=== PATIENT | male | born 1975 | race Caucasian/White ===

== ENCOUNTER 2018-11-30 10:58 | Inpatient (IN) ==
[2018-11-30] MEDS ORDERED: Aspirin 81 MG TAB.CHEW PO ONE (11:26)
[2018-11-30] MEDS ORDERED: Nitroglycerin 1 INCH/GM PACKET TP ONE ×2 (11:26→11:56)
[2018-11-30] MEDS ORDERED: 0.9 % Sodium Chloride 500 ML IVC ONE (11:26)
[2018-11-30 11:40] LABS: Basophils % 0.4 %; Eosinophils # 0.2 K/mcL (0.0-0.6); Eosinophils % 1.9 %; Hematocrit 45.2 % (37.5-50.1); Hemoglobin 15.4 g/dL (12.9-16.9); Immature Granulocytes % 0.4 % (0-4); Lymphocytes # 1.2 K/mcL (0.6-4.6); Lymphocytes % 14.3 %; Mean Corpuscular HGB Conc 34.1 g/dL (31.6-35.5); Mean Corpuscular Hemoglobin 31.4 pg (28.0-33.3); Mean Corpuscular Volume 92.2 fL (83.0-100.0); Mean Platelet Volume 10.4 fL (9.4-12.4); Monocytes # 0.7 K/mcL (0.0-1.3); Monocytes % 8.7 %; Neutrophils # 6.2 K/mcL (1.6-8.9); Platelet Count 152 K/mcL (140-400); Red Cell Distribution Width 13.2 % (11.5-14.5); Segmented Neutrophils % 74.3 %; White Blood Count 8.3 K/mcL (4.3-11.1)
[2018-11-30 11:47] LABS: Prothrombin Time 11.1 Seconds (9.4-12.1)
[2018-11-30 11:50] LABS: Activated Partial Thrombo Time 34.4 Seconds (26.0-36.0)
[2018-11-30] MEDS ORDERED: Ondansetron ODT 4 MG TAB.RAPDIS SL ONE (11:54)
[2018-11-30] MEDS ORDERED: 0.9 % Sodium Chloride 1,000 ML IVC ONE (11:54)
[2018-11-30 12:02] LABS: Alanine Aminotransferase 51 Units/L (7-52); Albumin 4.3 g/dL (3.5-5.7); Albumin/Globulin Ratio 1.6 (1.1-2.2); Alkaline Phosphatase 56 Units/L (34-104); Aspartate Amino Transferase 30 Units/L (13-39); BUN/Creatinine Ratio 14 (6-26); Bilirubin,Direct 0.1 mg/dL (0.0-0.2); Bilirubin,Indirect 0.4 mg/dL (0.0-1.2); Bilirubin,Total 0.5 mg/dL (0.3-1.0); Blood Urea Nitrogen 11 mg/dL (6-20); Calcium 9.2 mg/dL (8.6-10.3); Carbon Dioxide 23 mEq/L (23-29); Chloride 104 mEq/L (98-107); Globulin 2.7 g/dL (2.4-3.5); Glucose 107 mg/dL (70-105); Lipase 17 Units/L (11-82); Osmolality,Calculated 284 (280-300); Potassium 3.6 mEq/L (3.5-5.1); Sodium 137 mEq/L (136-145); Troponin I < 0.03 ng/mL (< 0.04); eGFR For African Americans > 60 (> 60); eGFR For Non-African Americans > 60 (> 60)
[2018-11-30] MEDS: Aspirin 81 MG TAB.CHEW PO SCH (12:58)
[2018-11-30] MEDS ORDERED: *HR* HYDROmorphone (PF) 1 MG/ML SYRINGE IVP ONE (14:48)
[2018-11-30] MEDS ORDERED: Isovue-370 500 ML BOTTLE IVP ONE (14:48)
--- NOTE | 2018-11-30 17:43 | Electrocardiograph Report ---
[facility]onet Test Date: 2018-11-30 Pat Name: Noble Lozano Department: EXAM2 Room: Gender: M Platinum Smith: : 1975 Requested By: [id number] Order Number: [id number] Reading MD: Marcelo Carmen Measurements Intervals [place] Rate: 87 P: 41 ID: [id number] QRS: 35 QRSD: 82 T: 54 QT: 349 QTc: 420 Interpretive Statements Sinus rhythm Baseline wander in lead(s) V1 Electronically Signed On 11-30-2018 17:41:25 EDT by Marcelo Carmen
--- NOTE | 2018-11-30 17:59 | Emergency Department Note ---
Disposition Clinical Impression: Chest pain Qualifiers: Chest pain type: unspecified Qualified Code(s): R07.9 - Chest pain, unspecified Disposition: Admitted As Inpatient Condition: Good Referrals: NONE,PCP [Primary Care Provider] - Time of Disposition: 18:00 General Adult HPI - General Chief complaint: ED Chest Pain Stated complaint: Chest Pain Time Seen by Provider: 11/30/18 11:26 Source: patient Limitations: no limitations - History of Present Illness HPI Narrative: HPI Chief Complaint chest pain Patient Stated Complaint Patient is a 43-year-old white male comes in with chest pain started earlier today approximately 8 or 9 AM patient is a history of any cardiac disease states has known high blood pressure denies any shortness of breath denies any recent traumatic events whatsoever and does have some mild bilateral chest wall tenderness to palpation otherwise all other systems reviewed are negative Allergy List : Reviewed-and agree with nurses notes Home Medication List : Reviewed-and agree with nurses notes Medical and Surgical History Active Problem List: Reviewed-and agree with nurses notes Family History Reviewed- see -nurses notes Vital Signs and Body Measurements Reviewed- see -nurses notes ROS At Least 10 Organ Systems Reviewed and Negative Except as Indicated in HPI Physical Examination: All findings normal unless otherwise noted Constitutional Alert & orientated x 3, No Acute Distress Well Nourished Head and Face :Normocephalic and Atraumatic Eye Extraocular Movement Intact Pupils Equally Round Reactive to light Ear Nose Throat Mucous Membranes Moist No Injury or Deformity Oropharynx Clear Cardiovascular Capillary Refill Less than 2 Seconds No Peripheral Edema Normal S1, S2 Pulses Normal Regular Rate and Rhythm Respiratory Clear to Auscultation Bilaterally Normal Rate and Effort no Respiratory Distress or Stridor Gastrointestinal Abdomen Soft Bowel Sounds Present Not Tender Distended Generalized Tenderness. No Guarding Rebound Rigid Genitourinary No Lesion Normal External Genitalia Musculoskeletal Distal Pulses Normal No Injury or Deformity No Calf Tendernes, no Paraspinous Tenderness or spinal ttp Cervical Lumbar Thoracic set positive bilateral chest wall tenderness to palpation Neurologic 5/5 Strength throughout No Focal Deficits Sensation Intact or Slurred Speech Skin Dry No Lesion No Rash Normal Color Warm no Cyanosis Diaphoretic Lymph No Lymphadenopathy or Lymphadenopathy Lymphedema Psychiatric Appropriate Affect Cooperative not Depressed Manic or having Suicidal Thoughts Laboratory Results-reviewed see results Data Reviewed EKG interpretation normal sinus rhythm rate 70 no STEMI Medical Decision Making and Diagnosis Medical Decision Making And evaluated labs and imaging reviewed and myself revealed patient improved with treatment and chest pain came back and stated both upper quadrant pain. CT scan performed was negative for acute cholecystitis patient now chest pain-free again. Her chest pain patient be admitted for observation for evaluation and ma indiaement patient with pain meds and antihypertensives due to elevated blood pressure dramatically improved. Family painful for care and agree with assessment and plan Differential Diagnosis Considered Final Diagnostic Impression #1 chest pain #2 hypertension 3. Abdominal pain #4 chest wall pain Disposition Admit Observation Pain Scale: 2 - Related Data Home Medications Medication Instructions Recorded Confirmed Esomeprazole Magnesium [Heartburn 20 mg PO DAILY 11/30/18 11/30/18 Treatment] Allergies Allergy/AdvReac Type Severity Reaction Status Date / Time Penicillins [PCN] Allergy Hives Verified 11/30/18 11:54 Past Medical History - Past Medical History Medical history: Reports: no medical history Psychiatric history: Reports: no psych history - Social History Smoking Status: Current every day smoker Alcohol use: Reports: none Drug use: Reports: none Physical Exam - General Limitations: no limitations Course Vital Signs Temperature 98.7 F 11/30/18 11:05 Pulse Rate 90 11/30/18 11:05 Respiratory Rate 16 11/30/18 11:05 Blood Pressure 198/121 11/30/18 11:05 O2 Sat by Pulse Oximetry 98 11/30/18 11:05 Temperature 98.7 F 11/30/18 11:05 Pulse Rate 90 11/30/18 13:10 Respiratory Rate 20 11/30/18 13:10 Blood Pressure 167/104 11/30/18 13:10 O2 Sat by Pulse Oximetry 98 11/30/18 13:10 Oxygen Delivery Oxygen Delivery Room Air Medical Decision Making - Lab Data Result diagrams: 11/30/18 11:15 11/30/18 11:15 Lab Results 11/30/18 11/30/18 11/30/18 Range/Units 11:15 11:15 11:15 WBC 8.3 (4.3-11.1) K/mcL RBC 4.90 (4.19-5.50) M/mcL Hgb 15.4 (12.9-16.9) g/dL Hct 45.2 (37.5-50.1) % MCV 92.2 (83.0-100.0) fL MCH 31.4 (28.0-33.3) pg MCHC 34.1 (31.6-35.5) g/dL RDW 13.2 (11.5-14.5) % Plt Count 152 (140-400) K/mcL MPV 10.4 (9.4-12.4) fL Immature Gran % 0.4 (0-4) % Seg Neutrophils % 74.3 % Lymphocytes % 14.3 % Monocytes % 8.7 % Eosinophils % 1.9 % Basophils % 0.4 % Neutrophils # 6.2 (1.6-8.9) K/mcL Lymphocytes # 1.2 (0.6-4.6) K/mcL Monocytes # 0.7 (0.0-1.3) K/mcL Eosinophils # 0.2 (0.0-0.6) K/mcL Basophils # 0.0 (0.0-0.2) K/mcL PT 11.1 (9.4-12.1) Seconds INR 1.0 APTT 34.4 (26.0-36.0) Seconds Sodium 137 (136-145) mEq/L Potassium 3.6 (3.5-5.1) mEq/L Chloride 104 (98-107) mEq/L Carbon Dioxide 23 (23-29) mEq/L BUN 11 (6-20) mg/dL Creatinine 0.76 (0.70-1.30) mg/dL Est GFR ( Amer) > 60 (> 60) Est GFR (Non-Af Amer) > 60 (> 60) BUN/Creatinine Ratio 14 (6-26) Glucose 107 H (70-105) mg/dL Calculated Osmolality 284 (280-300) Calcium 9.2 (8.6-10.3) mg/dL Total Bilirubin 0.5 (0.3-1.0) mg/dL Direct Bilirubin 0.1 (0.0-0.2) mg/dL Indirect Bilirubin 0.4 (0.0-1.2) mg/dL AST 30 (13-39) Units/L ALT 51 (7-52) Units/L Alkaline Phosphatase 56 (34-104) Units/L Troponin I < 0.03 (< 0.04) ng/mL Serum Total Protein 7.0 (6.4-8.9) g/dL Albumin 4.3 (3.5-5.7) g/dL Globulin 2.7 (2.4-3.5) g/dL Albumin/Globulin Ratio 1.6 (1.1-2.2) Lipase 17 (11-82) Units/L 11/30/18 11/30/18 Range/Units 14:57 16:37 WBC (4.3-11.1) K/mcL RBC (4.19-5.50) M/mcL Hgb (12.9-16.9) g/dL Hct (37.5-50.1) % MCV (83.0-100.0) fL MCH (28.0-33.3) pg MCHC (31.6-35.5) g/dL RDW (11.5-14.5) % Plt Count (140-400) K/mcL MPV (9.4-12.4) fL Immature Gran % (0-4) % Seg Neutrophils % % Lymphocytes % % Monocytes % % Eosinophils % % Basophils % % Neutrophils # (1.6-8.9) K/mcL Lymphocytes # (0.6-4.6) K/mcL Monocytes # (0.0-1.3) K/mcL Eosinophils # (0.0-0.6) K/mcL Basophils # (0.0-0.2) K/mcL PT (9.4-12.1) Seconds INR APTT (26.0-36.0) Seconds Sodium (136-145) mEq/L Potassium (3.5-5.1) mEq/L Chloride (98-107) mEq/L Carbon Dioxide (23-29) mEq/L BUN (6-20) mg/dL Creatinine (0.70-1.30) mg/dL Est GFR ( Amer) (> 60) Est GFR (Non-Af Amer) (> 60) BUN/Creatinine Ratio (6-26) Glucose (70-105) mg/dL Calculated Osmolality (280-300) Calcium (8.6-10.3) mg/dL Total Bilirubin (0.3-1.0) mg/dL Direct Bilirubin (0.0-0.2) mg/dL Indirect Bilirubin (0.0-1.2) mg/dL AST (13-39) Units/L ALT (7-52) Units/L Alkaline Phosphatase (34-104) Units/L Troponin I < 0.03 < 0.03 (< 0.04) ng/mL Serum Total Protein (6.4-8.9) g/dL Albumin (3.5-5.7) g/dL Globulin (2.4-3.5) g/dL Albumin/Globulin Ratio (1.1-2.2) Lipase (11-82) Units/L
--- NOTE | 2018-11-30 20:06 | Internal Med History&Physical ---
Date of Encounter: 12/01/18 Time of Encounter: 19:59 Internal Medicine - H&P: HPI Chief complaint: Chest pain. Admitted From: Home History of present illness: Mr. Lozano is a 43 year old male with past medical history of acid reflux resented to the ED for chest pain. [id number] encounter occurred about 7:10 p.m. Patient stated that he has not seen a primary care provider for over 20 years. Patient reported unknown past medical history of hyperlipidemia, type 2 diabetes, hypertension. Patient stated that this occurred substernal pressure in character 7/10 in severity and nonradiating constant worsened exertion and improved with nitroglycerin and is now 3/1 in severity association with nausea. Denied association of diaphoresis, shortness of breath, abdominal pain, visual changes or headache.. Patient had previous stress tests are cardiac catheterization previously. Patient does endorse smoking at least one pack per day for over 27 years, admits to daily drinking around 6-8 beers daily last drink being Monday, No drugs usage. 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 Patient's past medical, family, social and surgical history were reviewed personally. Patient's father has had 2 heart attacks at age of 50s. Discussed situation and patient course with sister. Patient also has been complaining of headache generalized occurred after placing nitroglycerin topical on the patient. CODE STATUS discussed with the patient is full code. Past Med Surg Social Fam HX - Past Medical History Medical history: no medical history Psychiatric history: no psych history - Social History Smoking Status: Current every day smoker Alcohol use: none Drug use: none - Family History Father Living Status: Hx Family Cardiac Disorders: Yes ([place], HTN) Mother Hx Family Endocrine Disorder: Yes (DM) Internal Medicine - H&P: Meds Esomeprazole Magnesium [Heartburn Treatment] 20 mg PO DAILY 11/30/18 [History] Allergy/AdvReac Type Severity Reaction Status Date / Time Penicillins [PCN] Allergy Hives Verified 11/30/18 22:39 All Systems PM: A 10-system review of systems was performed and is negative for pertinent findings except as documented above in the HPI. Review of systems: General: No unintentional weightloss, No fever, No night sweats. Head: + headahce, No injury. Ears: No discharge, No earache Eyes: No drainage, No eye pain Mouth and Throat: No new ulcers, No pain Nose and Sinus: No new congestion, No pain, Respiratory: No cough, No sputum production, No dyspnea Cardiovascular: + chest pain, No palpitations. Gastrointestinal:+ nausea, No vomiting. No abdominal pain Genital Tract: No discharge, No pain Urinary Tract: No dysuria, No discharge. MSK: No new/worsening joint pain or new/worsening muscle ache. Endocrine: No cold intolerance, No polyuria Psychological: No suicidal, No homocidal ideation. - Constitutional Vitals: Temp Pulse Resp BP Pulse Ox 98.7 F 90 18 169/106 98 11/30/18 11:05 11/30/18 13:10 11/30/18 19:38 11/30/18 19:38 11/30/18 13:10 Exam: General Appearance: Appearing as age, well-nourished in moderate acute distress. Head: Atraumatic normocephalic Skin: Normal texture, normal turgor, warm, dry. diaphoretic. Eyes: Conjunctivae not pale with no erythema, drainage, or ulcers. Anicteric. Neck: No Lymphadenopathy in the anterior/posterior cervical chain. No thyromegaly, masses or ulcers. Trachea midline. Heart: RRR, grade 2 systolic murmurs. Capillary refill 3 seconds Lungs: No accessory muscle usage, lungs clear to auscultation bilaterally, no wheezes or crackles. Extremities: No pitting edema, clubbing, cyanosis, or ulcers. Abdomen: morbid obese, Non-distended, normoactive bowel sounds. non-tender to palpation, no hepatomegally. No guarding. Neuro: AOx3 with no new sensory loss or focal deficits. MSK: Strength 5/5 Upper extremity equal bilaterally. Strength 5/5 Lower extremity equal bilaterally Internal Med - H&P Results - Labs CBC & Chem 7: 11/30/18 11:15 11/30/18 11:15 Labs: Short CBC 11/30/18 Range/Units 11:15 WBC 8.3 (4.3-11.1) K/mcL Hgb 15.4 (12.9-16.9) g/dL Hct 45.2 (37.5-50.1) % Plt Count 152 (140-400) K/mcL Neutrophils # 6.2 (1.6-8.9) K/mcL BMP 11/30/18 11:15 Sodium 137 Potassium 3.6 Chloride 104 Carbon Dioxide 23 BUN 11 Creatinine 0.76 Glucose 107 H Calcium 9.2 Cardiac Enzymes 11/30/18 11/30/18 11/30/18 Range/Units 11:15 14:57 16:37 Troponin I < 0.03 < 0.03 < 0.03 (< 0.04) ng/mL Liver Function 11/30/18 Range/Units 11:15 Total Bilirubin 0.5 (0.3-1.0) mg/dL Direct Bilirubin 0.1 (0.0-0.2) mg/dL AST 30 (13-39) Units/L ALT 51 (7-52) Units/L Alkaline Phosphatase 56 (34-104) Units/L Albumin 4.3 (3.5-5.7) g/dL - Impressions ITS Impressions Chest X-Ray 11/30/18 11:26 IMPRESSION: No evidence for acute cardiopulmonary process. D/ / Marcos Rodriguez MD / Marcos Rodriguez MD Interpreting Provider: Marcos Rodriguez MD Abdomen CT 11/30/18 14:48 IMPRESSION: Cholelithiasis. No acute cholecystitis. Scattered regions of hazy increased attenuation within the mesentery centrally. Retroperitoneal and mesenteric lymph nodes are slightly increased in number however normal in caliber. Findings may represent a mild mesenteritis. Recommend follow-up CT in 3-6 months to ensure no progression or adenopathy. D/ / Sharona Marcus MD / Sharona Marcus MD Interpreting Provider: Sharona Marcus MD Chest CT 11/30/18 14:48 IMPRESSION: No acute findings in the chest. D/ / Rylan Donahue MD / Rylan Donahue MD Interpreting Provider: Rylan Donahue MD - Summary of Assessment and Plan Summary of Assessment and Plan: 1.Typical Chest pain: 3/3(Substernal/Alleviated with rest/Worsened with exertion) ALDA Score: 0 pending lab results. My interpretation of EKG normal sinus rhythm with LAE and incomplete LBBB. No STT ischemic changes, CXR no acute findings. BB, Nitro, high intensity statin, Oxygen, and ASA. Troponin, EKG q6hour, Cardiac monitoring. Lipid panel, A1c, electrolytes pending Nuclear Stress test and echocardiogram. 2.Cigarette smoker: Nicotine patch ordered. 3.History of alcohol abuse: [facility] protocol initiated 4.Class I obesity: Nutrition consultation DVT prophylaxis: Heparin Disposition: Likely less than 2 day stay - Time Spent With Patient Total time spent is greater than 37 minutes 50% in coordination of care (as documented) at patient's floor/unit and/or counseling patient: Greater than 35 minutes
[2018-11-30] MEDS ORDERED: Nitroglycerin 0.4 MG TAB.SUBL SL PRN (20:14)
[2018-11-30] MEDS ORDERED: D5% in Water 1,000 ML IVC PRN (20:14)
[2018-11-30] MEDS ORDERED: *HR* LORazepam 2 MG/ML VIAL IVP PRN (20:14)
[2018-11-30] MEDS ORDERED: Dextrose Gel 15 GM/37.5 ML TUBE PO PRN ×2 (20:14)
[2018-11-30] MEDS ORDERED: Morphine Sulfate 2 MG/ML SYRINGE IVP PRN (20:14)
[2018-11-30] MEDS ORDERED: Nicotine 2 MG GUM BC PRN (20:14)
[2018-11-30] MEDS ORDERED: Naloxone 0.4 MG/ML INJ IVP PRN (20:14)
[2018-11-30] MEDS ORDERED: *HR* Dextrose 50 % in Water (Syg) 50 ML SYRINGE IVP PRN (20:14)
[2018-11-30] MEDS ORDERED: 0.9 % Sodium Chloride 1,000 ML IVC SCH (20:15)
[2018-11-30] MEDS: Ondansetron 4 MG/2 ML VIAL IVP PRN (20:54)
[2018-11-30] MEDS: Acetaminophen 325 MG TABLET PO PRN (20:58)
[2018-11-30] MEDS: *HR* Heparin 5,000 UNIT/ML VIAL SQ SCH (20:59)
[2018-11-30 21:07] LABS: Estimated Average Glucose 126 mg/dl
[2018-12-01 02:45] LABS: Basophils % 0.2 %; Eosinophils # 0.1 K/mcL (0.0-0.6); Eosinophils % 0.8 %; Hematocrit 42.1 % (37.5-50.1); Hemoglobin 14.2 g/dL (12.9-16.9); Immature Granulocytes % 0.5 % (0-4); Lymphocytes # 1.2 K/mcL (0.6-4.6); Lymphocytes % 12.4 %; Mean Corpuscular HGB Conc 33.7 g/dL (31.6-35.5); Mean Corpuscular Hemoglobin 31.3 pg (28.0-33.3); Mean Corpuscular Volume 92.9 fL (83.0-100.0); Mean Platelet Volume 10.4 fL (9.4-12.4); Monocytes # 0.9 K/mcL (0.0-1.3); Monocytes % 8.7 %; Neutrophils # 7.7 K/mcL (1.6-8.9); Platelet Count 144 K/mcL (140-400); Red Blood Count 4.53 M/mcL (4.19-5.50); Red Cell Distribution Width 13.3 % (11.5-14.5); Segmented Neutrophils % 77.4 %
[2018-12-01 02:52] LABS: INR 1.1; Prothrombin Time 12.1 Seconds (9.4-12.1)
[2018-12-01 03:03] LABS: Alanine Aminotransferase 39 Units/L (7-52); Albumin 3.7 g/dL (3.5-5.7); Albumin/Globulin Ratio 1.6 (1.1-2.2); Alkaline Phosphatase 48 Units/L (34-104); Aspartate Amino Transferase 19 Units/L (13-39); BUN/Creatinine Ratio 13 (6-26); Bilirubin,Total 0.7 mg/dL (0.3-1.0); Blood Urea Nitrogen 8 mg/dL (6-20); Calcium 8.2 mg/dL (8.6-10.3); Carbon Dioxide 22 mEq/L (23-29); Chloride 103 mEq/L (98-107); Chol/HDL Ratio 4.2 (0-4.9); Cholesterol 178 mg/dL (< 200); Globulin 2.3 g/dL (2.4-3.5); Glucose 108 mg/dL (70-105); HDL Cholesterol 42 mg/dL (40-59); LDL Cholesterol,Calculated 106 mg/dL (0-99); Magnesium 1.6 mg/dL (1.6-2.6); Osmolality,Calculated 279 (280-300); Phosphorous 2.9 mg/dL (2.7-4.5); Potassium 3.5 mEq/L (3.5-5.1); Sodium 135 mEq/L (136-145); Triglycerides 152 mg/dL (< 150); eGFR For African Americans > 60 (> 60); eGFR For Non-African Americans > 60 (> 60)
[2018-12-01] MEDS: *HR* Heparin 5,000 UNIT/ML VIAL SQ SCH ×3 (06:03→21:46)
[2018-12-01] MEDS ORDERED: Regadenoson 0.4 MG/5 ML SYRINGE IVP ONE (07:02)
[2018-12-01] MEDS: Vitamin B Complex/Vit C/Vit E 1 EACH TABLET PO SCH (11:53)
[2018-12-01] MEDS: Thiamine (B-1) 100 MG TABLET PO SCH (11:53)
[2018-12-01] MEDS: Aspirin 81 MG TAB.CHEW PO SCH (11:53)
[2018-12-01] MEDS: Acetaminophen 325 MG TABLET PO PRN ×2 (11:53→19:32)
[2018-12-01] MEDS: Folic Acid 1 MG TABLET PO SCH (11:53)
[2018-12-01] MEDS: Nicotine 21 MG PATCH.TD24 TD SCH (11:54)
--- NOTE | 2018-12-01 14:01 | Internal Med Progress Note ---
Hospitalist Progress Note - Encounter Date of Encounter: 12/01/18 Time of Encounter: 08:10 - Subjective Interval History: No acute events overnight. Patient here for acute substernal chest pain and nausea. This morning he reports that his pain is most severe in the right upper quadrant region of his abdomen. He denies fever and chills. - Exam Vitals: Temp Pulse Resp BP Pulse Ox 36.7 C 90 16 155/92 96 12/01/18 11:04 12/01/18 11:04 12/01/18 11:04 12/01/18 11:04 12/01/18 11:04 Exam: General Appearance: Appearing as age, well-nourished in moderate acute distress. Head: Atraumatic normocephalic Skin: Normal texture, normal turgor, warm, dry. diaphoretic. Eyes: Conjunctivae not pale with no erythema, drainage, or ulcers. Anicteric. Neck: No Lymphadenopathy in the anterior/posterior cervical chain. No thyromegaly, masses or ulcers. Trachea midline. Heart: RRR, grade 2 systolic murmurs. Capillary refill 3 seconds Lungs: No accessory muscle usage, lungs clear to auscultation bilaterally, no wheezes or crackles. Extremities: No pitting edema, clubbing, cyanosis, or ulcers. Abdomen: Significant tenderness in right upper quadrant region. Rosenberg's sign is equivocal since patient has tenderness before and after deep inspiration. Neuro: AOx3 with no new sensory loss or focal deficits. MSK: Strength 5/5 Upper extremity equal bilaterally. Strength 5/5 Lower extremity equal bilaterally - Assessment and Plan (1) Acute cholecystitis Current Visit: Yes Status: Suspected Assessment and Plan: Patient reports significant right upper quadrant pain He also admits nausea but denies vomiting, fever and chills Right upper quadrant ultrasound suspicious for cholecystitis with gallstones present and gallbladder. Gen. surgery consulted Patient to be on a clear liquid diet for now and nothing by mouth after midnight for possible cholecystectomy tomorrow morning (2) Chest pain Current Visit: Yes Status: Acute Assessment and Plan: Presented with restrosternal chest pain initially. Troponin negative x5 EKG normal ECHO: LVEF 60-65%, normal LV chamber and size, Moderate left ventricular diastolic dysfunction, normal RV sturcture, No evidence of PHTN, No valvular dysfunction. Perfusion imaging negative for ischemia or infarct. Will monitor. (3) Alcohol abuse Current Visit: Yes Status: Acute Assessment and Plan: Patient drinks 6 bottles of beer every night. He has been counseled on available options to help quit alcohol CIWA protocol (4) Cigarette nicotine dependence Current Visit: Yes Status: Acute Assessment and Plan: Patient smokes half a pack a day Counseled on available options to help quit smoking. (5) Obesity (BMI 30.0-34.9) Current Visit: Yes Status: Acute Assessment and Plan: Counseled on weight loss options. (6) DVT prophylaxis Current Visit: Yes Status: Acute Assessment and Plan: Subcutaneous heparin - Time Spent with Patient Total time spent is greater than 50% in coordination of care (as documented) at patient's floor/unit and/or counseling patient: Internal Medicine: Result - Labs CBC & Chem 7: 12/01/18 02:13 12/01/18 02:13 Labs: Short CBC 12/01/18 Range/Units 02:13 WBC 10.0 (4.3-11.1) K/mcL Hgb 14.2 (12.9-16.9) g/dL Hct 42.1 (37.5-50.1) % Plt Count 144 (140-400) K/mcL Neutrophils # 7.7 (1.6-8.9) K/mcL BMP 12/01/18 02:13 Sodium 135 L Potassium 3.5 Chloride 103 Carbon Dioxide 22 L BUN 8 Creatinine 0.61 L Glucose 108 H Calcium 8.2 L Cardiac Enzymes 11/30/18 11/30/18 11/30/18 Range/Units 14:57 16:37 20:44 Troponin I < 0.03 < 0.03 < 0.03 (< 0.04) ng/mL 12/01/18 Range/Units 02:13 Troponin I < 0.03 (< 0.04) ng/mL Liver Function 12/01/18 Range/Units 02:13 Total Bilirubin 0.7 (0.3-1.0) mg/dL AST 19 (13-39) Units/L ALT 39 (7-52) Units/L Alkaline Phosphatase 48 (34-104) Units/L Albumin 3.7 (3.5-5.7) g/dL - ABG Interpretation ABG results: PT/INR, D-dimer PT 12.1 Seconds (9.4-12.1) 12/01/18 02:13 - Impressions Impressions Abdomen CT 11/30/18 14:48 IMPRESSION: Cholelithiasis. No acute cholecystitis. Scattered regions of hazy increased attenuation within the mesentery centrally. Retroperitoneal and mesenteric lymph nodes are slightly increased in number however normal in caliber. Findings may represent a mild mesenteritis. Recommend follow-up CT in 3-6 months to ensure no progression or adenopathy. D/ / Sharona Marcus MD / Sharona Marcus MD Interpreting Provider: Sharona Marcus MD Chest CT 11/30/18 14:48 IMPRESSION: No acute findings in the chest. D/ / Rylan Donahue MD / Rylan Donahue MD Interpreting Provider: Rylan Donahue MD Echocardiogram 11/30/18 20:14 Impressions: LVEF 60-65%. Normal LV chamber size, wall thickness and function. Moderate left ventricular diastolic dysfunction. Normal right ventricular structure and function. No evidence of pulmonary hypertension. No significant valvular dysfunction. Left Ventricular Wall Motion: Rest Echo Findings All wall segments showed normal motion. Findings: Study Quality * Technically adequate exam. ECG Findings * Normal sinus rhythm. Left Ventricle * LVEF 60-65%. * Normal LV chamber size, wall thickness and function. * Moderate left ventricular diastolic dysfunction. Right Ventricle * Normal right ventricular structure and function. Left Atrium * Mildly dilated left atrium. Right Atrium * Normal right atrial size. Interatrial Septum * No evidence of PFO by color Doppler. Aortic Valve * Aortic valve not well visualized. * No aortic regurgitation. * No aortic stenosis. Mitral Valve * Normal mitral valve structure and function. * No mitral regurgitation. * No mitral stenosis. Tricuspid Valve * Normal tricuspid valve structure and function. * Trace tricuspid regurgitation. * No evidence of pulmonary hypertension. Pulmonic Valve * Normal pulmonic valve structure and function. * No pulmonic regurgitation. Aorta * Normally sized aortic root. Pericardium * The pericardium appears normal. IVC * Normal IVC dimensions and inspiratory collapse. Pulmonary Artery * Normal visualized portions of the main pulmonary artery. Liver Ultrasound 12/01/18 11:00 IMPRESSION: Findings suspicious for acute cholecystitis. D/ / Hoang Bradley MD / Hoang Bradley MD Interpreting Provider: Hoang Bradley MD Consult Discharge Plan - Plan Referrals: NONE,PCP [Primary Care Provider] - (2) Chest pain Qualifiers: Chest pain type: unspecified Qualified Code(s): R07.9 - Chest pain, unspecified
--- NOTE | 2018-12-01 17:37 | AcuteCare Surgery Consult Note ---
Date of Encounter: 12/01/18 Time of Encounter: 17:25 Assessment and Plan (1) Cholelithiasis with acute on chronic cholecystitis without biliary obstruction Current Visit: Yes Status: Acute Findings are consistent with cholelithiasis with acute on chronic cholecystitis. I have recommended laparoscopic cholecystectomy and discussed the risks and benefits with the patient. He wishes to proceed. Qualifiers: Cholelithiasis location: gallbladder Qualified Code(s): K80.12 - Calculus of gallbladder with acute and chronic cholecystitis without obstruction (2) Acute cholecystitis Current Visit: Yes Status: Suspected Ultrasound findings suggestive of acute cholecystitis. I would add antibiotics at this point. The patient does have penicillin allergy with hives History of Present Illness Consult date: 12/01/18 Reason for consult: abdominal pain History of present illness: The patient initially presented to the emergency department with retrosternal chest pain. He had a full cardiac workup. EKG and troponin levels were all n egative. A follow-up ultrasound right upper quadrant demonstrated thickened gallbladder wall and cholelithiasis with pericholecystic fluid. Findings are suggestive of acute cholecystitis. The patient denies shakes chills or fever. He denies episodes of jaundice. He has had intermittent postprandial nausea. Earlier today he had some pain in the right upper quadrant after drinking liquids. The patient has cholelithiasis with chronic cholecystitis with likely an acute episode of cholecystitis or recalcitrant biliary colic. He has clear indications for laparoscopic cholecystectomy. I discussed the risks and benefits of surgery with him including bleeding, infection, reoperation, open co nversion, and bile duct leak or injury. He wishes to proceed. Past Med Surg Social Fam HX - Past Medical History Medical history: no medical history Psychiatric history: no psych history - Social History Smoking Status: Current every day smoker Alcohol use: none Drug use: none - Family History Father Living Status: Hx Family Cardiac Disorders: Yes ([place], HTN) Mother Hx Family Endocrine Disorder: Yes (DM) Medications and Allergies Esomeprazole Magnesium [Heartburn Treatment] 20 mg PO DAILY 11/30/18 [History] Allergy/AdvReac Type Severity Reaction Status Date / Time Penicillins [PCN] Allergy Hives Verified 11/30/18 22:39 Review of Systems All systems PM: The remainder of the systems were reviewed and are negative General Surgery Exam Initial Vital Signs Temp Pulse Resp BP Pulse Ox 98.7 F 90 16 198/121 98 11/30/18 11:05 11/30/18 11:05 11/30/18 11:05 11/30/18 11:05 11/30/18 11:05 - General physical appearance well developed, well nourished, no distress - Neck no masses, no bruits, trachea midline, no lymphadectomy, no venous distension - Respiratory normal expansion, normal respiratory effort, clear to auscultation - Cardiovascular Cardiovascular exam: Present: RRR, no murmurs/rubs/gallops - Abdomen Abdomen general surgery: Present: bowel sounds present, soft, tender Abdominal Tenderness: Present: RUQ (Mild tenderness with Rosenberg sign to deep palpation. No involuntary guarding or rebound) - Incision Incision: Present: clean and dry, intact - Neurologic Present: CN 2-12 grossly intact, normal coordination, normal sensation - Psychiatric Psychiatric general surgery: Present: appropriate, oriented to person, oriented to place, oriented to time, speech is normal, memory intact Exam Initial Vital Signs Temp Pulse Resp BP Pulse Ox 98.7 F 90 16 198/121 98 11/30/18 11:05 11/30/18 11:05 11/30/18 11:05 11/30/18 11:05 11/30/18 11:05 Results - Labs 12/01/18 02:13 12/01/18 02:13 Abnormal lab results Sodium 135 mEq/L (136-145) L 12/01/18 02:13 Carbon Dioxide 22 mEq/L (23-29) L 12/01/18 02:13 Creatinine 0.61 mg/dL (0.70-1.30) L 12/01/18 02:13 Glucose 108 mg/dL (70-105) H 12/01/18 02:13 Hemoglobin A1c 6.0 % (-5.6) H 11/30/18 20:44 Calculated Osmolality 279 (280-300) L 12/01/18 02:13 Calcium 8.2 mg/dL (8.6-10.3) L 12/01/18 02:13 Serum Total Protein 6.0 g/dL (6.4-8.9) L 12/01/18 02:13 Globulin 2.3 g/dL (2.4-3.5) L 12/01/18 02:13 Triglycerides 152 mg/dL (< 150) H 12/01/18 02:13 LDL Cholesterol, Calc 106 mg/dL (0-99) H 12/01/18 02:13 Diabetes panel 11/30/18 12/01/18 Range/Units 20:44 02:13 Sodium 135 L (136-145) mEq/L Potassium 3.5 (3.5-5.1) mEq/L Chloride 103 (98-107) mEq/L Carbon Dioxide 22 L (23-29) mEq/L BUN 8 (6-20) mg/dL Creatinine 0.61 L (0.70-1.30) mg/dL Glucose 108 H (70-105) mg/dL Hemoglobin A1c 6.0 H ( - 5.6) % Calcium 8.2 L (8.6-10.3) mg/dL AST 19 (13-39) Units/L ALT 39 (7-52) Units/L Alkaline Phosphatase 48 (34-104) Units/L Albumin 3.7 (3.5-5.7) g/dL Triglycerides 152 H (< 150) mg/dL HDL Cholesterol 42 (40-59) mg/dL Calcium panel 12/01/18 Range/Units 02:13 Calcium 8.2 L (8.6-10.3) mg/dL Phosphorus 2.9 (2.7-4.5) mg/dL Albumin 3.7 (3.5-5.7) g/dL Pituitary panel 12/01/18 Range/Units 02:13 Sodium 135 L (136-145) mEq/L Potassium 3.5 (3.5-5.1) mEq/L Chloride 103 (98-107) mEq/L Carbon Dioxide 22 L (23-29) mEq/L BUN 8 (6-20) mg/dL Creatinine 0.61 L (0.70-1.30) mg/dL Glucose 108 H (70-105) mg/dL Calcium 8.2 L (8.6-10.3) mg/dL Adrenal panel 12/01/18 Range/Units 02:13 Sodium 135 L (136-145) mEq/L Potassium 3.5 (3.5-5.1) mEq/L Chloride 103 (98-107) mEq/L Carbon Dioxide 22 L (23-29) mEq/L BUN 8 (6-20) mg/dL Creatinine 0.61 L (0.70-1.30) mg/dL Glucose 108 H (70-105) mg/dL Calcium 8.2 L (8.6-10.3) mg/dL Total Bilirubin 0.7 (0.3-1.0) mg/dL AST 19 (13-39) Units/L ALT 39 (7-52) Units/L Alkaline Phosphatase 48 (34-104) Units/L Albumin 3.7 (3.5-5.7) g/dL All other labs normal. - Imaging US - abdomen: image reviewed (I personally reviewed the ultrasound of the right upper quadrant area and findings are consistent with acute cholecystitis) Consult Discharge Plan - Plan Referrals: NONE,PCP [Primary Care Provider] -
[2018-12-01] MEDS: MetroNIDAZOLE 500 MG/100 ML 500 MG/100 ML BAG IVPB SCH (19:32)
[2018-12-01 21:35] LABS: Bilirubin,Urine Negative (Negative); Blood,Urine Negative (Negative); Clarity,Urine Clear (Clear); Color,Urine Yellow (Yellow); Glucose,Urine (UA) Normal (Normal); Ketones,Urine Negative (Negative); Leukocyte Esterase,Urine Negative (Negative); Nitrite,Urine Negative (Negative); PH,Urine 6.5 pH Units (5.0-8.0); Protein,Urine Negative (Neg-Trace); Specific Gravity,Urine 1.008 (1.010-1.025)
[2018-12-01 21:45] LABS: Amphetamine Screen,Urine Negative ng/mL (Cutoff=1000); Barbiturate Screen,Urine Negative ng/mL (Cutoff=200); Benzodiazepines Screen,Urine Negative ng/mL (Cutoff=200); Cannabinoid Screen,Urine Negative ng/mL (Cutoff = 50); Cocaine Screen,Urine Negative ng/mL (Cutoff= 300); Opiate Screen,Urine Negative ng/mL (Cutoff=300); Phencyclidine Screen,Urine Negative ng/mL (Cutoff=25)
[2018-12-02] MEDS: MetroNIDAZOLE 500 MG/100 ML 500 MG/100 ML BAG IVPB SCH ×3 (03:14→19:39)
[2018-12-02 04:50] LABS: Amphetamine Screen,Urine Negative ng/mL (Cutoff=1000); Barbiturate Screen,Urine Negative ng/mL (Cutoff=200); Benzodiazepines Screen,Urine Negative ng/mL (Cutoff=200); Cannabinoid Screen,Urine Positive ng/mL (Cutoff = 50); Cocaine Screen,Urine Negative ng/mL (Cutoff= 300); Opiate Screen,Urine Negative ng/mL (Cutoff=300); Phencyclidine Screen,Urine Negative ng/mL (Cutoff=25)
[2018-12-02] MEDS: *HR* Heparin 5,000 UNIT/ML VIAL SQ SCH ×3 (05:59→21:10)
[2018-12-02] MEDS ORDERED: *HR* FentaNYL (PF) 100 MCG/2 ML VIAL ONE (07:31)
[2018-12-02] MEDS ORDERED: *HR* Midazolam HCl 2 MG/2 ML VIAL ONE (07:31)
[2018-12-02] MEDS ORDERED: *HR* Propofol 200 MG/20 ML VIAL IVP ONE (07:32)
[2018-12-02] MEDS ORDERED: Lidocaine -MPF 2% 2 ML VIAL ONE (07:37)
[2018-12-02] MEDS ORDERED: EPHEDrine 50 MG/ML VIAL ONE (07:37)
[2018-12-02] MEDS ORDERED: Dexamethasone 4 MG/ML VIAL ONE (07:37)
[2018-12-02] MEDS ORDERED: *HR* Succinylcholine 200 MG/10 ML VIAL IVP ONE (07:37)
[2018-12-02] MEDS ORDERED: *HR* Rocuronium Bromide 50 MG/5 ML VIAL ONE (07:37)
[2018-12-02] MEDS ORDERED: Ondansetron 4 MG/2 ML VIAL ONE (07:37)
--- NOTE | 2018-12-02 07:41 | Anesthesia Evaluation PreOp ---
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 History: Denies Any Significant HX Other Medical History: Denies Any Significant HX, GERD Alcohol Use: heavy Drug use: none Medications and Allergies Esomeprazole Magnesium [Heartburn Treatment] 20 mg PO DAILY 11/30/18 [History] Allergy/AdvReac Type Severity Reaction Status Date / Time Penicillins [PCN] Allergy Hives Verified 11/30/18 22:39 - Meds/Allergy Pre-op Review Medications Reviewed: Yes Allergies Reviewed: Yes Beta Blockers on Current Med List: No Anesthesia Results - Labs 12/01/18 02:13 12/01/18 02:13 - Imaging EKG: report reviewed, image reviewed Chest x-ray: report reviewed Anesthesia Exam Vital Signs/O2 Sat, Most Current Temp Pulse Resp BP Pulse Ox 98.3 F 77 15 127/82 96 12/02/18 03:27 12/02/18 03:27 12/02/18 03:27 12/02/18 03:27 12/02/18 03:27 - HEENT Pupil (Motor): Pupils equal, EOMI Mallampati: III Teeth: Edentulous Oral Opening: Greater than 3 - GAS LEAK TESTER LOC: Oriented GAS LEAK TESTER Motor: Normal RUE, Normal LUE, Normal RLE, Normal LLE, Normal Face GAS LEAK TESTER Sensory: Normal: RUE, LUE, RLE, LLE, Face - Cardiac Rhythm: Regular Murmur: None JVD: No - Pulmonary Breath Sounds: bilateral Clear Respiratory Effort: Symmetrical Anesthesia Assess/Plan ASA Score: 2 Level of consciousness: Cooperative Anesthetic Plan: General Monitoring Plan: Standard Monitors Recovery Plan: PACU
[2018-12-02] MEDS ORDERED: Lidocaine -MPF 4% 5 ML AMPUL ONE (07:44)
[2018-12-02] MEDS ORDERED: *HR* Promethazine 25 MG/ML VIAL IVP PRN ×2 (07:52→13:13)
[2018-12-02] MEDS ORDERED: *HR* HYDROmorphone (PF) 1 MG/ML SYRINGE IVP PRN ×2 (07:52→13:13)
[2018-12-02] MEDS ORDERED: *HR* OxyCODONE Immed Rel 5 MG TABLET PO PRN (07:52)
[2018-12-02] MEDS ORDERED: *HR* Meperidine 25 MG/ML SYRINGE IVP PRN ×2 (07:52→13:13)
[2018-12-02] MEDS ORDERED: Ringers Solution, Lactated 1,000 ML IVC SCH ×2 (08:00→13:13)
[2018-12-02] MEDS: Aspirin 81 MG TAB.CHEW PO SCH (08:07)
[2018-12-02] MEDS: Folic Acid 1 MG TABLET PO SCH (08:16)
[2018-12-02] MEDS: Vitamin B Complex/Vit C/Vit E 1 EACH TABLET PO SCH (08:16)
[2018-12-02] MEDS: Nicotine 21 MG PATCH.TD24 TD SCH (08:16)
[2018-12-02] MEDS: Thiamine (B-1) 100 MG TABLET PO SCH (08:16)
[2018-12-02] MEDS ORDERED: Scopolamine Patch 1.5 MG PATCH.TD72 ONE (08:37)
[2018-12-02] MEDS ORDERED: Scopolamine Patch 1.5 MG PATCH.TD72 TD ONE (08:46)
[2018-12-02] MEDS: Ondansetron 4 MG/2 ML VIAL IVP PRN (08:48)
[2018-12-02] MEDS ORDERED: Acetaminophen IV 1,000 MG/100 ML INFUS..BTL ONE (09:22)
[2018-12-02] MEDS ORDERED: CefOXitin 1,000 MG VIAL ONE (09:51)
[2018-12-02] MEDS ORDERED: Isovue-300 50 ML VIAL ONE (10:02)
--- NOTE | 2018-12-02 10:37 | Internal Med Progress Note ---
Hospitalist Progress Note - Encounter Date of Encounter: 12/02/18 Time of Encounter: 07:45 - Subjective Interval History: Patient presented with chest pain and right upper quadrant pain. Ultrasound findings consistent with cholecystitis. He is scheduled for surgery this morning. He admits right upper quadrant pain and nausea but denies fever, chills and vomiting. - Exam Vitals: Temp Pulse Resp BP Pulse Ox 37.4 C 80 17 145/97 95 12/02/18 08:35 12/02/18 08:35 12/02/18 08:35 12/02/18 08:35 12/02/18 08:35 Exam: General Appearance: Appearing as age, well-nourished in moderate acute distress. Head: Atraumatic normocephalic Skin: Normal texture, normal turgor, warm, dry. diaphoretic. Eyes: Conjunctivae not pale with no erythema, drainage, or ulcers. Anicteric. Neck: No Lymphadenopathy in the anterior/posterior cervical chain. No thyromegaly, masses or ulcers. Trachea midline. Heart: RRR, grade 2 systolic murmurs. Capillary refill 3 seconds Lungs: No accessory muscle usage, lungs clear to auscultation bilaterally, no wheezes or crackles. Extremities: No pitting edema, clubbing, cyanosis, or ulcers. Abdomen: Significant tenderness in right upper quadrant region. Rosenberg's sign is equivocal since patient has tenderness before and after deep inspiration. Neuro: AOx3 with no new sensory loss or focal deficits. MSK: Strength 5/5 Upper extremity equal bilaterally. Strength 5/5 Lower extremity equal bilaterally - Assessment and Plan (1) Acute cholecystitis Current Visit: Yes Status: Suspected Assessment and Plan: Patient reports significant right upper quadrant pain He also admits nausea but denies vomiting, fever and chills Right upper quadrant ultrasound suspicious for cholecystitis with gallstones present and gallbladder. Gen. surgery consulted Scheduled for surgery this morning. (2) Chest pain Current Visit: Yes Status: Acute Assessment and Plan: Presented with restrosternal chest pain initially. Troponin negative x5 EKG normal ECHO: LVEF 60-65%, normal LV chamber and size, Moderate left ventricular diastolic dysfunction, normal RV sturcture, No evidence of PHTN, No valvular dysfunction. Perfusion imaging negative for ischemia or infarct. Will monitor. (3) Alcohol abuse Current Visit: Yes Status: Acute Assessment and Plan: Patient drinks 6 bottles of beer every night. He has been counseled on available options to help quit alcohol CIWA protocol (4) Cigarette nicotine dependence Current Visit: Yes Status: Acute Assessment and Plan: Patient smokes half a pack a day Counseled on available options to help quit smoking. (5) Obesity (BMI 30.0-34.9) Current Visit: Yes Status: Acute Assessment and Plan: Counseled on weight loss options. (6) DVT prophylaxis Current Visit: Yes Status: Acute Assessment and Plan: Subcutaneous heparin - Time Spent with Patient Total time spent is greater than 50% in coordination of care (as documented) at patient's floor/unit and/or counseling patient: Internal Medicine: Result - Labs CBC & Chem 7: 12/01/18 02:13 12/01/18 02:13 Labs: Urine 12/01/18 Range/Units 21:16 Urine Color Yellow (Yellow) Urine Clarity Clear (Clear) Urine pH 6.5 (5.0-8.0) pH Units Ur Specific [place] 1.008 L (1.010-1.025) Urine Protein Negative (Neg-Trace) mg/dL Urine Glucose (UA) Normal (Normal) mg/dL - ABG Interpretation ABG results: PT/INR, D-dimer PT 12.1 Seconds (9.4-12.1) 12/01/18 02:13 - Impressions Impressions Liver Ultrasound 12/01/18 11:00 IMPRESSION: Findings suspicious for acute cholecystitis. D/ / Hoang Bradley MD / Hoang Bradley MD Interpreting Provider: Hoang Bradley MD Consult Discharge Plan - Plan Referrals: NONE,PCP [Primary Care Provider] - (2) Chest pain Qualifiers: Chest pain type: unspecified Qualified Code(s): R07.9 - Chest pain, unspecified
[2018-12-02] MEDS ORDERED: Neostigmine Methylsulfate 3 MG/3 ML SYRINGE ONE (10:52)
[2018-12-02] MEDS ORDERED: *HR* HYDROMORPHONE 2 MG/ML VIAL ONE (11:04)
--- NOTE | 2018-12-02 11:45 | Operative Note ---
Date of procedure: 12/02/18 Pre-op diagnosis: Cholelithiasis with acute on chronic cholecystitis Post-op diagnosis: same Procedure: #1 laparoscopic cholecystectomy, cholangiogram (+30% for severe intra-abdominal adhesions and acute inflammation and obstruction) #2 lysis of adhesions for 30 minutes ( laparoscopic) Anesthesia: JAMES Surgeon: Rajesh Newton Was there an bilingual office assistant present: No Estimated blood loss (cc): 50 Specimen: Gallbladder and contents Condition: stable Disposition: PACU Procedure in Detail: Laparoscopic cholecystectomy and intraoperative cholangiogram (+30% for acute inflammation, severe adhesions, and obstruction) Operative procedure: after informed consent and appropriate patient identification, the patient was taken to the major operating suite and placed supine position and given adequate general endotracheal anesthesia. The abdomen was prepped and draped in sterile fashion utilizing ChloraPrep standard draping techniques. Timeout was taken and the patient was identified. I made a vertical midline incision below the umbilicus and dissected down to level of fascia. I placed 2 traction stitches of 0 vicryl in the midline fascia and the abdominal cavity was entered visually. A Kaplan trocar was placed in the abdomen and the abdomen was insufflated to 15 mmHg pressure CO2. I initially could not visualize the gallbladder or the liver. There were [employer] adhesions covering the entire dome of the liver. All of these adhesions were lysed. The patient also had omental adhesions to the inferior border of the liver and to the falciform ligament. All of these were lysed under direct vision. Lysis of adhesions took 30 minutes. Once the adhesions were lysed I was able to visualize the gallbladder. The gallbladder was completely obstructed. The gallbladder was decompressed with a decompression needle. The gallbladder was visualized. I placed an 11 port in the subxiphoid area and two 5 mm ports in the subcostal area. The gallbladder was grasped and elevated. A variety of blunt and sharp dissection techniques were used to isolate the cystic duct and cystic artery. Dissection was very difficult because of acute adhesions The cystic artery was controlled with 2 surgical clips proximally and one distally and it was divided. I placed a surgical clip on the neck the gallbladder and obtained an intraoperative cholangiogram using 10 mL of Isovue. Intraoperative cholangiogram was normal. The cholangiocatheter was removed and the cystic duct was controlled with 2 surgical clips proximally and was divided. The gallbladder was removed from the gallbladder fossae using electrocautery. Dissection was very difficult because of acute adhesions The gallbladder was removed from the abdomen through the #11 port site using a specimen bag. I replaced the #11 port and irrigated with copious amounts of antibiotic contain ing solution. There was no evidence of bleeding or bile leak. All trochars were removed. Fascia was closed with 0 Vicryl and 0 Nurolon and the skin with 2-0 and 4-0 Vicryl. He tolerated the procedure well and was transferred to recovery in stable condition
--- NOTE | 2018-12-02 12:24 | Anesthesia Evaluation Post Op ---
Date of Encounter: 12/02/18 Time of Encounter: 12:22 - Vital Signs Vital Signs: Vital Signs/O2 Sat, Most Current Temp Pulse Resp BP Pulse Ox 98.2 F 70 14 152/94 94 12/02/18 11:53 12/02/18 12:13 12/02/18 12:13 12/02/18 12:13 12/02/18 12:13 - Lungs Lungs: Clear Ascult./Percussion - Airway Airway: Non-obstructed - Cardiovascular Regular Rate - Mental Status Mental Status: Alert & Oriented, Answers Appropriately - Nausea Vomiting Nausea Vomiting: Not Present - Hydration Hydration: Tolerates oral liquids - Discharge PostOp Status: Transfer Patient to floor
[2018-12-02] MEDS ORDERED: Nicotine 2 MG GUM BC PRN (13:13)
[2018-12-02] MEDS ORDERED: Ondansetron 4 MG/2 ML VIAL IVP PRN (13:13)
[2018-12-02] MEDS ORDERED: *HR* Dextrose 50 % in Water (Syg) 50 ML SYRINGE IVP PRN (13:13)
[2018-12-02] MEDS ORDERED: Naloxone 0.4 MG/ML INJ IVP PRN (13:13)
[2018-12-02] MEDS ORDERED: D5% in Water 1,000 ML IVC PRN (13:13)
[2018-12-02] MEDS ORDERED: Nitroglycerin 0.4 MG TAB.SUBL SL PRN (13:13)
[2018-12-02] MEDS ORDERED: *HR* LORazepam 2 MG/ML VIAL IVP PRN (13:13)
[2018-12-02] MEDS ORDERED: Morphine Sulfate 2 MG/ML SYRINGE IVP PRN (13:13)
[2018-12-02] MEDS ORDERED: Dextrose Gel 15 GM/37.5 ML TUBE PO PRN ×2 (13:13)
[2018-12-03] MEDS: MetroNIDAZOLE 500 MG/100 ML 500 MG/100 ML BAG IVPB SCH ×3 (03:09→18:30)
[2018-12-03] MEDS: Acetaminophen 325 MG TABLET PO PRN ×2 (03:22→17:30)
[2018-12-03] MEDS: *HR* Heparin 5,000 UNIT/ML VIAL SQ SCH ×3 (06:19→22:11)
[2018-12-03] MEDS: Aspirin 81 MG TAB.CHEW PO SCH (08:42)
[2018-12-03] MEDS: Folic Acid 1 MG TABLET PO SCH (08:43)
[2018-12-03] MEDS: Vitamin B Complex/Vit C/Vit E 1 EACH TABLET PO SCH (08:46)
[2018-12-03] MEDS: Thiamine (B-1) 100 MG TABLET PO SCH (08:46)
[2018-12-03] MEDS ORDERED: Nicotine 21 MG PATCH.TD24 TD SCH (09:00)
--- NOTE | 2018-12-03 11:33 | Internal Med Progress Note ---
Hospitalist Progress Note - Encounter Date of Encounter: 12/03/18 Time of Encounter: 08:20 - Subjective Interval History: Patient underwent eventful laparoscopic cholecystectomy and cholangiogram yesterday. He currently admits some mild soreness at the surgical site but denies nausea and vomiting. He adds that he feels much relieved after surgery. He denies fever and chills - Exam Vitals: Temp Pulse Resp BP Pulse Ox 36.6 C 79 16 147/95 95 12/03/18 11:11 12/03/18 11:11 12/03/18 11:11 12/03/18 11:11 12/03/18 11:11 Exam: General Appearance: Appearing as age, well-nourished in moderate acute distress. Head: Atraumatic normocephalic Skin: Normal texture, normal turgor, warm, dry. diaphoretic. Eyes: Conjunctivae not pale with no erythema, drainage, or ulcers. Anicteric. Neck: No Lymphadenopathy in the anterior/posterior cervical chain. No thyromegaly, masses or ulcers. Trachea midline. Heart: RRR, grade 2 systolic murmurs. Capillary refill 3 seconds Lungs: No accessory muscle usage, lungs clear to auscultation bilaterally, no wheezes or crackles. Extremities: No pitting edema, clubbing, cyanosis, or ulcers. Abdomen: Surgical dressing in place, clean and dry. Mild tenderness on palpation. MELINA drain in situ and draining some blood. Neuro: AOx3 with no new sensory loss or focal deficits. MSK: Strength 5/5 Upper extremity equal bilaterally. Strength 5/5 Lower extremity equal bilaterally - Assessment and Plan (1) Acute cholecystitis Current Visit: Yes Status: Suspected Assessment and Plan: Patient is POD 1 laparoscopic cholecystectomy and cholangiogram Surgical dressing in place and clean. Patient admits relief of pain after surgery. MELINA drain in place and draining some blood. We will continue IV antibiotics for another 24 hours. (2) Chest pain Current Visit: Yes Status: Acute Assessment and Plan: Presented with restrosternal chest pain initially. Troponin negative x5 EKG normal ECHO: LVEF 60-65%, normal LV chamber and size, Moderate left ventricular diastolic dysfunction, normal RV sturcture, No evidence of PHTN, No valvular d ysfunction. Perfusion imaging negative for ischemia or infarct. Will monitor. (3) Alcohol abuse Current Visit: Yes Status: Acute Assessment and Plan: Patient drinks 6 bottles of beer every night. He has been counseled on available options to help quit alcohol CIWA protocol (4) Cigarette nicotine dependence Current Visit: Yes Status: Acute Assessment and Plan: Patient smokes half a pack a day Counseled on available options to help quit smoking. (5) Obesity (BMI 30.0-34.9) Current Visit: Yes Status: Acute Assessment and Plan: Counseled on weight loss options. (6) DVT prophylaxis Current Visit: Yes Status: Acute Assessment and Plan: Subcutaneous heparin - Time Spent with Patient Total time spent is greater than 50% in coordination of care (as documented) at patient's floor/unit and/or counseling patient: Internal Medicine: Result - Labs CBC & Chem 7: 12/01/18 02:13 12/01/18 02:13 - ABG Interpretation ABG results: PT/INR, D-dimer PT 12.1 Seconds (9.4-12.1) 12/01/18 02:13 Consult Discharge Plan - Plan Referrals: Jennifer Epps MD [Partnered Physician] - 12/07/18 8:00 am (2) Chest pain Qualifiers: Chest pain type: unspecified Qualified Code(s): R07.9 - Chest pain, unspecified
--- NOTE | 2018-12-03 15:22 | AcuteCareSurgery Progress Note ---
Date of Encounter: 12/03/18 Time of Encounter: 07:00 - Assessment and Plan (1) S/P laparoscopic cholecystectomy Current Visit: Yes Status: Acute POD#1. Pt progress is satisfactory. Continue MELINA and IV abx. Probable DC tomorrow. (2) Cholelithiasis with acute on chronic cholecystitis without biliary obstruction Current Visit: Yes Status: Acute Qualifiers: Cholelithiasis location: gallbladder Qualified Code(s): K80.12 - Calculus of gallbladder with acute and chronic cholecystitis without obstruction Subjective Patient reports: no new complaints, feels better, pain is less, tolerating a regular diet, flatus, afebrile Objective Vital Signs - Last 8 Hours Temp Pulse Resp BP Pulse Ox 12/03/18 11:11 97.9 F 79 16 147/95 95 12/03/18 07:25 98.1 F 75 16 148/94 97 Intake and Output 12/02/18 12/03/18 12/03/18 23:59 07:59 15:59 Intake Total 1100 / 1200 100 / 1580 1480 / 1580 Output Total 100 / 220 20 / 20 Balance 1000 / 980 80 / 1560 1480 / 1560 Intake: IV Fluids 500 / 600 100 / 1100 1000 / 1100 Lactated Ringers 1,000 ML @ 25 700 / 700 mls/hr IVC .Q24H [facility] Rx#: [id number] Cipro Premix 400 MG/200 ML 400 400 / 400 200 / 200 mg In 200 ml @ 200 mls/hr IVPB Q12HR [facility] Rx#:[id number] Flagyl Premix 500 MG/100 ML 500 100 / 100 100 / 200 100 / 200 mg In 100 ml @ 100 mls/hr IVPB Q8H [facility] Rx#:[id number] Oral 600 / 600 480 / 480 Output: Wound Drainage 100 / 100 20 / 20 RLQ 100 / 100 20 / 20 Other: Meal Breakfast Percent of Meal Consumed 100% Weight 111.1 kg Blood Glucose* 173 115 111 Patient Weight 12/03/18 23:59 Weight 111.1 kg - General physical appearance no distress, no pain - Eyes PERRL, normal ocular movement - ENT no congestion, dry mucosa - Neck Neck exam: trachea midline, no venous distension - Respiratory normal respiratory effort, clear to auscultation - Cardiovascular Cardiovascular exam: Present: RRR. Absent: JVD - Abdomen Abdomen: Present: bowel sounds present, tender (as expected post-op) Additional Comments: MEILNA with moderate amount of serosanguinous drainage - Incision Incision: Present: clean and dry, intact - Neurologic CN 2-12 grossly intact, normal coordination - Musculoskeletal normal posture - Psychiatric oriented to time, oriented to person, oriented to place - Labs 12/01/18 02:13 12/01/18 02:13 Consult Discharge Plan - Plan Referrals: Jennifer Epps MD [Partnered Physician] - 12/07/18 8:00 am
[2018-12-04] MEDS: MetroNIDAZOLE 500 MG/100 ML 500 MG/100 ML BAG IVPB SCH (02:28)
[2018-12-04] MEDS: *HR* Heparin 5,000 UNIT/ML VIAL SQ SCH (06:03)
[2018-12-04] MEDS: Vitamin B Complex/Vit C/Vit E 1 EACH TABLET PO SCH (07:30)
[2018-12-04] MEDS: Thiamine (B-1) 100 MG TABLET PO SCH (07:30)
[2018-12-04] MEDS: Aspirin 81 MG TAB.CHEW PO SCH (07:30)
[2018-12-04] MEDS: Folic Acid 1 MG TABLET PO SCH (07:31)
[2018-12-04] MEDS: Acetaminophen 325 MG TABLET PO PRN (07:31)
[2018-12-04 07:39] VITALS: BP 147/95
--- NOTE | 2018-12-04 08:37 | AcuteCareSurgery Progress Note ---
<ElvisSarah Cooper - Last Filed: 12/04/18 08:33> Date of Encounter: 12/04/18 Time of Encounter: 07:30 - Assessment and Plan (1) Cholelithiasis with acute on chronic cholecystitis without biliary obst ruction Status: Acute Mr. Lozano is recovering as expected from a surgical standpoint. We will remove his MELINA drain as it is serosanguineous. He is ok discharge from a schulte rgical perspective. D/c instructions and surgical prescriptions have been placed. Surgery will sign off at this time. Thank you for allowing us to participate in Mr. Lozano' care. Please call or reconsult if further questions or needs arise. Qualifiers: Cholelithiasis location: gallbladder Qualified Code(s): K80.12 - Calculus of gallbladder with acute and chronic cholecystitis without obstruction Subjective Patient reports: no new complaints, feels better, pain is less, tolerating a regular diet, voiding w/o difficulty, flatus, no bowel movement, afebrile Objective Vital Signs - Last 8 Hours Temp Pulse Resp BP Pulse Ox 12/04/18 07:38 97.6 F 77 16 147/95 97 12/04/18 03:58 98.2 F 77 16 150/79 95 Intake and Output 12/03/18 12/04/18 12/04/18 23:59 07:59 15:59 Intake Total 420 / 2000 500 / 500 Output Total 55 / 75 940 / 940 Balance 365 / 1925 -440 / -440 Intake: IV Fluids 300 / 1400 Cipro Premix 400 MG/200 ML 400 200 / 400 mg In 200 ml @ 200 mls/hr IVPB Q12HR [facility] Rx#:[id number] Flagyl Premix 500 MG/100 ML 500 100 / 300 mg In 100 ml @ 100 mls/hr IVPB Q8H [facility] Rx#:[id number] Oral 120 / 600 500 / 500 Output: Urine 900 / 900 Wound Drainage 55 / 75 40 / 40 RLQ 55 / 75 40 / 40 Other: Meal Dinner Percent of Meal Consumed 45% Weight 112 kg Blood Glucose* 116 Patient Weight 12/04/18 23:59 Weight 112 kg - General physical appearance well nourished, no distress, no pain - ENT atraumatic, normocephalic - Abdomen Abdomen: Present: bowel sounds present, soft, tender (Expected postoperative), wound (MELINA is with SS output. Site is unremarkable) - Incision Incision: Present: clean and dry, intact - Integumentary no rash - Musculoskeletal normal posture - Psychiatric oriented to time, oriented to person, oriented to place - Labs 12/01/18 02:13 12/01/18 02:13 Consult Discharge Plan - Plan Instructions: Laparoscopic Cholecystectomy (DC) Additional Instructions: General Surgical Discharge Instructions 1. No pushing, pulling, or lifting greater than 15 lbs for 4 weeks. 2. You may remove your dressings and shower beginning today, but no tub baths, soaking, or swimming for 2 weeks. 3. No driving for one weeks unless otherwise specified and then you may resume driving when you are off narcotics and are safe to react in a car. 4. Apply ice to the abdomen 20 minutes every hour that your week. Take ibuprofen every 8 hours for discomfort. You may alternate the ibuprofen with 1000 mg acetaminophen so that you have medication every 4 hours. If this does not relieve discomfort, you may take the as needed oxycodone. Eat a small snack with pain medication as this will help reduce the risk of nausea. Take narcotics as directed. Do not take more narcotics then directed and do not share your narcotics with any other person. Do not drink alcohol while on narcotics. You can take the Zofran/ondansetron if needed for nausea or with a dose of narcotics to prevent nausea. 5. Take stool softeners (Colace) or a water based laxative (Miralax) while taking narcotics. You may hold for loose stools. 6. Report any fevers greater than 100.5F, increase abdominal discomfort, drainage that looks like pus, increased redness or pain at the surgical site, or any vomiting. 7. Report any pain in the calves, shortness of breath, or rapid heartbeat. 8. Follow-up in the office as directed. 9. If you were prescribed antibiotics, do not stop them without talking to your provider. Referrals: Jennifer Epps MD [Partnered Physician] - 12/07/18 8:00 am Rajesh Newton MD [Partnered Physician] - 12/25/18 8:50 am Prescriptions: Docusate Sodium [Colace] 100 mg PO BID PRN #30 capsule PRN Reason: Contstipation Ibuprofen 800 mg PO Q8H PRN #30 tablet PRN Reason: Postsurgical pain OxyCODONE Immed Rel [Roxicodone 5 MG] 5 mg PO Q6HR PRN 4 Days #15 tablet PRN Reason: Severe Pain Ondansetron HCl [Zofran] 4 mg PO Q4H PRN #15 tablet PRN Reason: nausea/vomiting <Maan,Rajesh T - Last Filed: 12/04/18 15:20> Date of Encounter: 12/04/18 - Assessment and Plan (1) Cholelithiasis with acute on chronic cholecystitis without biliary obstruction Status: Acute Qualifiers: Cholelithiasis location: gallbladder Qualified Code(s): K80.12 - Calculus of gallbladder with acute and chronic cholecystitis without obstruction (2) Acute cholecystitis Status: Suspected Objective Vital Signs - Last 8 Hours Temp Pulse Resp BP Pulse Ox 12/04/18 07:38 97.6 F 77 16 147/95 97 Intake and Output 12/03/18 12/04/18 12/04/18 23:59 07:59 15:59 Intake Total 420 / 2000 500 / 960 460 / 960 Output Total 55 / 75 940 / 940 Balance 365 / 1925 -440 / 20 460 / 20 Intake: IV Fluids 300 / 1400 Cipro Premix 400 MG/200 ML 400 200 / 400 mg In 200 ml @ 200 mls/hr IVPB Q12HR [facility] Rx#:[id number] Flagyl Premix 500 MG/100 ML 500 100 / 300 mg In 100 ml @ 100 mls/hr IVPB Q8H [facility] Rx#:[id number] Oral 120 / 600 500 / 960 460 / 960 Output: Urine 900 / 900 Wound Drainage 55 / 75 40 / 40 RLQ 55 / 75 40 / 40 Other: Meal Dinner Breakfast Percent of Meal Consumed 45% 100% Weight 112 kg Blood Glucose* 116 Patient Weight 12/04/18 23:59 Weight 112 kg - Labs 12/01/18 02:13 12/01/18 02:13 - Attending Attestation I have personally performed a face to face evaluation on this patient. I have reviewed and agree with the care plan. History and Exam by me shows: The patient is seen and evaluated on morning rounds with the acute care surgery team [place] drain can be removed. The patient can be discharged from the hospital. I am very pleased his overall clinical course. Preoperative pain syndrome is gone. He is afebrile. Rajesh Newton MD FACS
--- NOTE | 2018-12-04 09:09 | Discharge Summary ---
- NOTES TO OUTPATIENT PROVIDER Notes to Outpatient Provider: Patient's systolic was usually in the 140s on admission but he was in pain most of the time. Will need evaluation for hypertension as outpatient. Thanks. Orders not resulted at time of discharge: Pending orders 12/02/18 11:25 Surgical Pathology [PTH] Routine Date of Encounter: 12/04/18 Time of Encounter: 09:08 - Discharge Diagnosis (1) Acute cholecystitis Priority: Primary Status: Suspected (2) Chest pain Priority: Secondary Status: Acute Qualifiers: Chest pain type: unspecified Qualified Code(s): R07.9 - Chest pain, unspecified (3) Alcohol abuse Priority: Secondary Status: Acute (4) Cigarette nicotine dependence Priority: Secondary Status: Acute Qualifiers: Substance use status: uncomplicated Qualified Code(s): F17.210 - Nicotine dependence, cigarettes, uncomplicated (5) Obesity (BMI 30.0-34.9) Priority: Secondary Status: Acute (6) DVT prophylaxis Priority: Secondary Status: Acute Hospital course: Mr. Lozano is a 43 year old male who presented with epigastric pain and right upper quadrant pain. He was found to have acute cholecystitis on ultrasound and had an uneventful laparoscopic cholecystectomy performed. Discharge discussed with: patient, family, nurse, sustainable design consultant - Time Spent with Patient Total time spent providing and/or coordinating discharge services: Time spent: Greater than 30 minutes (45 minutes) - Discharge Medications Prescriptions: New Docusate Sodium [Colace] 100 mg PO BID PRN #30 capsule PRN Reason: Contstipation Ibuprofen 800 mg PO Q8H PRN #30 tablet PRN Reason: Postsurgical pain OxyCODONE Immed Rel [Roxicodone 5 MG] 5 mg PO Q6HR PRN 4 Days #15 tablet PRN Reason: Severe Pain Ondansetron HCl [Zofran] 4 mg PO Q4H PRN #15 tablet PRN Reason: nausea/vomiting Continued Esomeprazole Magnesium [Heartburn Treatment] 20 mg PO DAILY Home Medications: Esomeprazole Magnesium [Heartburn Treatment] 20 mg PO DAILY 11/30/18 [History] Docusate Sodium [Colace] 100 mg PO BID PRN #30 capsule 12/04/18 [Rx] Ibuprofen 800 mg PO Q8H PRN #30 tablet 12/04/18 [Rx] Ondansetron HCl [Zofran] 4 mg PO Q4H PRN #15 tablet 12/04/18 [Rx] OxyCODONE Immed Rel [Roxicodone 5 MG] 5 mg PO Q6HR PRN 4 Days #15 tablet 12/04/18 [Rx] Allergies/Adverse Reactions: Allergy/AdvReac Type Severity Reaction Status Date / Time Penicillins [PCN] Allergy Hives Verified 11/30/18 22:39 Date of admission: 12/02/18 15:06 Primary care physician: PCP NONE Consults: 11/30/18 20:22 Consult to Nutrition [CONS] Routine Comment: Consulting Provider: NUTRITION Reason for Dietary Consult: Other Other:: obesity 12/01/18 12:12 Consult to Surgery [CONS] Routine Consulting Provider: [facility] Reason for Consult: RUQ pain. USG findings suspicious for acute cholecystitis Call Completed: Yes - Constitutional Vitals: Temp Pulse Resp BP Pulse Ox 36.4 C 77 16 147/95 97 12/04/18 07:38 12/04/18 07:38 12/04/18 07:38 12/04/18 07:38 12/04/18 07:38 Exam: General Appearance: Not in distress. Head: Atraumatic normocephalic Skin: Normal texture, normal turgor, warm, dry. diaphoretic. Eyes: Conjunctivae not pale with no erythema, drainage, or ulcers. Anicteric. Neck: No Lymphadenopathy in the anterior/posterior cervical chain. No thyromegaly, masses or ulcers. Trachea midline. Heart: RRR, grade 2 systolic murmurs. Capillary refill 3 seconds Lungs: No accessory muscle usage, lungs clear to auscultation bilaterally, no wheezes or crackles. Extremities: No pitting edema, clubbing, cyanosis, or ulcers. Abdomen: Abdominal surgical dressing is clean. MELINA drain was still in place at time of encounter with serosanguinous drainage. Neuro: AOx3 with no new sensory loss or focal deficits. MSK: Strength 5/5 Upper extremity equal bilaterally. Strength 5/5 Lower extremity equal bilaterally - Patient Status Disposition: Home, Self-Care Condition: Good Overall status at discharge: patient is progressing back to baseline - Discharge Instructions Instructions: Laparoscopic Cholecystectomy (DC) Follow Up With: Rajesh Newton MD [Partnered Physician] - 12/25/18 8:50 am Jennifer Epps MD [Partnered Physician] - 12/07/18 8:00 am Additional Instructions: General Surgical Discharge Instructions 1. No pushing, pulling, or lifting greater than 15 lbs for 4 weeks. 2. You may remove your dressings and shower beginning today, but no tub baths, soaking, or swimming for 2 weeks. 3. No driving for one weeks unless otherwise specified and then you may resume driving when you are off narcotics and are safe to react in a car. 4. Apply ice to the abdomen 20 minutes every hour that your week. Take ibuprofen every 8 hours for discomfort. You may alternate the ibuprofen with 1000 mg acetaminophen so that you have medication every 4 hours. If this does not relieve discomfort, you may take the as needed oxycodone. Eat a small snack with pain medication as this will help reduce the risk of nausea. Take narcotics as directed. Do not take more narcotics then directed and do not share your narcotics with any other person. Do not drink alcohol while on narcotics. You can take the Zofran/ondansetron if needed for nausea or with a dose of narcotics to prevent nausea. 5. Take stool softeners (Colace) or a water based laxative (Miralax) while taking narcotics. You may hold for loose stools. 6. Report any fevers greater than 100.5F, increase abdominal discomfort, drainage that looks like pus, increased redness or pain at the surgical site, or any vomiting. 7. Report any pain in the calves, shortness of breath, or rapid heartbeat. 8. Follow-up in the office as directed. 9. If you were prescribed antibiotics, do not stop them without talking to your provider. - Diet and Activity Activity: increase activity as tolerated Diet: advance to your usual diet
== END 2018-12-04 10:58 | disposition home or self-care (01) | DRG 419 ==
LOC: 3BNU 10:58 → EMEROOARM 10:58 → SUATTDRO 18:53 → 3BNU 20:00
PROVIDERS: ADMIT Internal Medicine; ATTEND Internal Medicine